=== PATIENT | female | born 1975 | race Two or more races ===

== ENCOUNTER 2019-07-14 10:58 | Emergency (ER) | payer MEDICAID ==
[2019-07-14 11:05] VITALS: BP 126/71
== END 2019-07-14 13:26 | disposition home or self-care (01) ==
LOC: ER 10:58
DX: M75.31 Calcific tendinitis of right shoulder (principal)
CPT/HCPCS: 73030

== ENCOUNTER 2024-05-02 23:12 | Emergency (ER) | payer MEDICAID ==
[~2024-05-02] VITALS: Ht 157.5 cm; Wt 79.3 kg
[2024-05-02 23:27] VITALS: BP 137/65; PULSE 93; RESP 16; TEMP 97.9; O2SAT 98
[2024-05-03] MEDS ORDERED: PRED20TA2 PO (01:02)
[2024-05-03] MEDS ORDERED: CLIN1CAP70 PO (01:02)
[2024-05-03] MEDS: TETANUS-DIPTH-ACEL PERTUSSIS 0.5ML SYR Tdap IM ONE (01:22)
[2024-05-03] MEDS: cefTRIAXone SOD 1,000 MG VL IM ONE (01:31)
[2024-05-03] MEDS: methylPREDNISolone SOD SUCC 125 MG/2 ML VL IM ONE (01:31)
== END 2024-05-03 01:08 | disposition home or self-care (01) ==
LOC: ER 23:12
DX: S60.862A Insect bite (nonvenomous) of left wrist, initial encounter (principal); L03.114 Cellulitis of left upper limb; F17.210 Nicotine dependence, cigarettes, uncomplicated; F12.90 Cannabis use, unspecified, uncomplicated; Z98.890 Other specified postprocedural states; W57.XXXA Bitten or stung by nonvenomous insect and other nonvenomous arthropods, initial encounter; Y93.89 Activity, other specified; Y92.89 Other specified places as the place of occurrence of the external cause; Y99.8 Other external cause status
CPT/HCPCS: 90471; 90715; 96372; 99284; J0696; J2919

== ENCOUNTER 2025-05-24 23:45 | Emergency (ER) | payer MEDICAID ==
[~2025-05-24] VITALS: Ht 157.5 cm; Wt 79.5 kg
[~2025-05-24 23:45] MED LIST: CLIN1CAP70 PO; PRED20TA2 PO
[2025-05-24 23:46] VITALS: BP 150/85; PULSE 89; RESP 16; TEMP 97.8; O2SAT 98
--- NOTE | 2025-05-25 00:31 | DVH ---
CLINICAL HISTORY: S/P INJURY TECHNIQUE: 3 views of the right ankle were obtained. COMPARISON: None FINDINGS/IMPRESSION: Acute mildly displaced fracture of the distal fibula with suspected intra- articular extension. Moderate soft tissue swelling about the ankle.
[2025-05-25] MEDS ORDERED: IBUP-1456 PO (01:18)
--- NOTE | 2025-05-25 01:18 | ED.PDOC ---
Back pain HPI HPI Comments PT CAME TO THE ER WITH CC OF RIGHT ANKLE PAIN, PT STATES HER DOGS RAN BETWEEN HER LEGS CAUSING HER TO TRIP, SHE STATES SHE HEARD 2 CRACKS. PT IS A&OX4 RR EVEN AND REGULAR. 2+ NON PITTING EDEMA TO THE RIGHT ANKLE. DENIES NUMBNESS OR WEAKNESS OR ANY OTHER KNOWN INJURY. 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 History: Denies all 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 UNLOADER Hx Family History Family History: Unknown Social History Smoker: Cigarettes, Less Than 1 Pack/Day Alcohol: Denies ETOH Use Drugs: Marijuana Lives In: Home All Other Systems: Reviewed and Negative (SEE HPI) Physical Exam General Appearance: No Apparent Distress, Normal HEENT: Pharynx Normal Neck: Full Range of Motion, Non-Tender Respiratory: Lungs Clear, No Respiratory Distress, Normal Breath Sounds Cardiovascular: No Murmur, No Gallop, Normal Peripheral Pulses, Regular Rate/Rhythm Breast Exam: Deferred Gastrointestinal: Non Tender, Soft Genitalia: Deferred Pelvic: Deferred Rectal: Deferred Extremities: Normal capillary refill, No pedal edema Musculoskeletal : Location: Right Extremity Location: Ankle (LATERAL ASPECT WITH MODERATE EDEMA AND TENDERNESS ON PALPATION. STRENGTH SENSORY MOTION INTACT POSITIVE PEDAL PULSE NO NOTED ECCHYMOSIS OR ANGULATION) Apperance: Normal Neurologic: Alert, No Motor Deficits, Normal Affect, Normal Mood, No Sensory Deficits Cerebellar Function: Normal Reflexes: NOT DONE Skin: Dry, Normal Color, Warm Lymphatic: No Adenopathy Was a procedure done? Was a procedure done?: No Back Pain Differential Dx Differential Diagnosis: Fracture, Musculoskeletal Pain, Strain X-Ray, Labs, Meds, VS Vital Signs Date Time Temp Pulse Resp B/P (MAP) Pulse Ox O2 Delivery O2 Flow Rate FiO2 05/24/25 23:46 97.8 89 16 150/85 98 97.8 X-Ray, Labs, Meds, VS Comment RIGHT ANKLE X-RAY FINDINGS/IMPRESSION: Acute mildly displaced fracture of the distal fibula with suspected intra- articular extension. Moderate soft tissue swelling about the ankle. Placed in [place] splint crutches provided. Patient given [place] 5 mg p.o. for the pain reports improvement in pain and function requesting discharge at this time. Advised no weight-bearing use crutches follow up with your PCP for referral to ortho. Advised on rice. Script trial of ibuprofen. ER return precautions given patient indicates understanding agrees with discharge plan of care. Images Reviewed?: Images reviewed and evaluated by me Time of 1ST Reevaluation: 23:50 Reevaluation 1ST: Unchanged Time of 2ND Reevaluation: 01:15 Reevaluation 2ND: Improved Patient Education/Counseling: Diagnosis, Treatment, Need For Follow Up Family Education/Counseling: Diagnosis, Treatment SEPSIS Sepsis Screen Date sepsis recognized/suspect: May 24, 2025 Time Sepsis recognized/suspect: 2348 Recent Procedure: No On Antibiotic Therapy: No Respiratory Rate >20: No Heart Rate >90: No Temp<36 C (96.8 F) or >38.3 C: No SBP <90 or MAP <65 mmHG: No New Acute Mental Status Change: No Is the patient on CPAP, BIPAP,: No Physician Orders R Ankle 3 View (05/25/25 00:08) Hydrocodone-Acet 5/325mg Tab ([place] 5/32 (05/25/25 01:15) Splints (05/25/25 ) Vital Signs Date Time Temp Pulse Resp B/P (MAP) Pulse Ox O2 Delivery O2 Flow Rate FiO2 05/24/25 23:46 97.8 89 16 150/85 98 97.8 Departure 1 Departure Time of Disposition: 01:15 Impression: Primary Impression: Fracture of distal end of right fibula Qualified Codes: S82.831A - Other fracture of upper and lower end of right fibula, initial encounter for closed fracture Disposition: 01 HOME / SELF CARE / HOMELESS Condition: Stable e-Prescriptions Ibuprofen (Ibuprofen) 800 Mg Tab 800 MG PO Q8HP PRN for 7 Days, #21 TAB Prov: ROOSEVELT TREJO 05/25/25 Discharged With: Spouse Critical Care Note Critical Care Time?: No Stability Stability form required: ROOSEVELT Mcclendon May 25, 2025 01:18
[2025-05-25] MEDS: HYDROcodone-ACET 5/325MG TAB PO ONE (01:33)
== END 2025-05-25 02:19 | disposition home or self-care (01) ==
LOC: ER 23:45
DX: S82.831A Other fracture of upper and lower end of right fibula, initial encounter for closed fracture (principal); I10 Essential (primary) hypertension; F17.210 Nicotine dependence, cigarettes, uncomplicated; D64.9 Anemia, unspecified; W01.0XXA Fall on same level from slipping, tripping and stumbling without subsequent striking against object, initial encounter; Y93.89 Activity, other specified; Y92.89 Other specified places as the place of occurrence of the external cause; Y99.8 Other external cause status
CPT/HCPCS: 29515; 73610